=== PATIENT | female | born 1995 | race Caucasian/White ===

== ENCOUNTER 2017-05-08 19:00 | Inpatient (IN) | payer OTHER ==
[2017-05-08 19:55] LABS: BASOPHIL 0.1 % (0-2.0); EOSINOPHIL 1.1 % (0-4.5); MCH 31.9 pg (25.7-33.7); MCHC 34.4 g/dl (32.0-36.0); MEAN CELL VOLUME 92.6 fl (80-96); MEAN PLT VOLUME 8.8 fl (7.5-11.1); NEUTROPHILS 73.4 % (42.8-82.8); PLATELET COUNT 185 K/MM3 (134-434); WHITE BLOOD COUNT 7.6 K/mm3 (4.0-10.0)
[2017-05-08] MEDS ORDERED: AMPICILLIN - 100 ML IVPB ONE (20:00)
[2017-05-08 20:10] LABS: INR 0.95 (0.82-1.09); PROTHROMBIN TIME (PATIENT) 10.4 SEC (9.98-11.88)
[2017-05-08 20:12] LABS: ACTIVATED PTT 26.2 SECONDS (26.9-34.4)
[2017-05-08] MEDS ORDERED: TUBERCULIN PPD 5 TU/0.1ML SYRINGE (IN PATIENT USE ONLY) ID ONE (20:45)
[2017-05-08] MEDS ORDERED: DEXTROSE 5%-LACTATED RINGERS 1,000 ML IV SCH (20:45)
[2017-05-08 20:59] LABS: ANION GAP 11 (8-16); CALCIUM 8.5 mg/dL (8.5-10.1); CO2 23 mmol/L (21-32); CREATININE 0.4 mg/dL (0.55-1.02); GLUCOSE,RANDOM 89 mg/dL (74-106)
[2017-05-08] MEDS ORDERED: OXYTOCIN 15 UNITS/ LR 250 ML 250 ML IVPB SCH (21:00)
[2017-05-08 21:03] VITALS: BMI 25.9
--- NOTE | 2017-05-08 21:58 | HP ---
Past Medical History - Admission History of Present Illness: 21 yo @ 40 5/7 wks by LMP consistent for first trimester ultrasound, EDC complicated by: 1. ASCUS/HPV+, colpo bx=DELBERT I 2. Teen 3. GBS positive, no penicillin allergy Patient presents for induction of labor for postdates. She reports movement, denies leakage of fluid or vaginal bleeding. History Source: Patient Limitations to Obtaining History: No Limitations - Past Medical History Cardiovascular: No: HTN Pulmonary: No: Asthma Gastrointestinal: No: GERD ...: 1 ...Para: 0 ...Term: 0 ...: 0 ...Spon : 0 ...Induced : 0 ...Multiple Gestation: 0 ...LMP: 07/26/16 ... Weeks Gestation by Dates: 41.0 ...EDC by Dates: 05/01/17 ...EDC by Sono: 05/03/17 Heme/Onc: No: Anemia - Past Surgical History Past Surgical History: Yes: None Hx Myomectomy: No Hx Transabdominal Cerclage: No - Smoking History Smoking history: Never smoked Have you smoked in the past 12 months: No - Alcohol/Substance Use Hx Alcohol Use: No History of Substance Use: reports: None - Social History Usual Living Arrangement: Yes: Alone History of Recent Travel: No Home Medications - Allergies Allergies/Adverse Reactions: Allergies Allergy/AdvReac Type Severity Reaction Status Date / Time No Known Allergies Allergy Verified 04/16/17 12:44 - Home Medications Home Medications: Ambulatory Orders Vitamins (Sjr) - 1 tab PO DAILY 04/16/17 Family Disease History - Family Disease History Family History: Denies Review of Systems - Review of Systems Constitutional: reports: No Symptoms Neck: reports: No Symptoms Cardiovascular: reports: No Symptoms Gastrointestinal: reports: No Symptoms Genitourinary: reports: No Symptoms Musculoskeletal: reports: No Symptoms Integumentary: reports: No Symptoms Neurological: reports: No Symptoms Endocrine: reports: No Symptoms Psychiatric: reports: No Symptoms Physical Exam - Maternity Vital Signs: Vital Signs Temperature 98.2 F 05/08/17 20:57 Pulse Rate 85 05/08/17 20:57 Respiratory Rate 18 05/08/17 20:57 Blood Pressure 110/61 05/08/17 20:57 O2 Sat by Pulse Oximetry (%) Constitutional: Yes: Well Nourished, No Distress, Calm Cardiovascular: Yes: Regular Rate and Rhythm Lungs: Clear to auscultation - Abdominal Exam/OB Number of Fetuses: Single Presentation: Vertex Contractions: Yes Regularity: Regular Intensity: Moderate Heart Rate (range): 130 Category: I Accelerations: Non-Uniform Decelerations: None - Vaginal Exam/OB Speculum Exam: No Dilatation (cm): 5 Amniotic Membrane Status: Ruptured Station: -2 - Physical Exam Edema: No Psychiatric: Yes: Alert, Oriented - Labs Lab Results: CBC, BMP 05/08/17 19:30 05/08/17 19:30 Hemorrhage Risk Assessment - Risk Factors Medium Risk Factors: Yes: None High Risk Factors: Yes: None Risk Score: 1 Risk Level: Medium Risk Imaging - Results Ultrasound: Report Reviewed (05/04/2017 - EFW 8lb 3 oz, BPP 8/8, KATHLEEN 13.1) Assessment/Plan 21 yo @ 40 5/7 wks induction of labor 1. Consents reviewed and signed. Risks including uterine tachysystole, heart rate changes, failure, need for emergent delivery discussed. All questions answered. 2. Admission labs reviewed 3. GBS positive, ampicillin per protocol 4. Will offer pain medication upon patient request 5. Will proceed with expectant management, anticipate vaginal deilvery.
[2017-05-08] MEDS ORDERED: ELECTROLYTE-148 SOLN 500 ML IV ONE (22:00)
[2017-05-08 22:03] LABS: HIV 1 & 2 AB NEGATIVE; HIV 1 AGp24 NEGATIVE
[2017-05-08] MEDS ORDERED: PCA PUMP KEY 1 EACH EACH ONE (22:09)
[2017-05-08] MEDS: FENTANYL/BUPIVACAINE/NS/PF - PCEA - 50 ML DISP.SYRIN EP SCH ×2 (22:30→23:30)
[2017-05-09] MEDS ORDERED: AMPICILLIN - 100 ML IVPB SCH
[2017-05-09] MEDS ORDERED: WITCH HAZEL 50% (TUCKS) 40 PAD/JAR PAD TP PRN (02:02)
[2017-05-09] MEDS ORDERED: BENZOCAINE 28 GM HEMORRHOIDAL OINTMENT TP PRN (02:02)
[2017-05-09] MEDS ORDERED: oxyCODONE HCL 5 MG TABLET PO PRN (02:02)
[2017-05-09] MEDS ORDERED: BISACODYL 10 MG SUPP.RECT RC PRN (02:02)
[2017-05-09] MEDS ORDERED: BENZOCAINE 20% 57 GM BOTTLE TP PRN (02:02)
[2017-05-09] MEDS ORDERED: METHYLERGONOVINE MALEATE 0.2 MG/1 ML AMP IM PRN (02:02)
--- NOTE | 2017-05-09 02:02 | PN ---
Delivery - Delivery Vaginal Delivery: No Problems Type of Anesthesia: Epidural Episiotomy/Laceration: Midline, Left Mediolateral, 1st degree EBL (cc): 400 Delivery, Single - Stages of Labor Date 1st Stage Initiatied: 05/08/17 Time 1st Stage Initiated: 22:00 Date 2nd Stage Initiated: 05/09/17 Time 2nd Stage Initiated: 01:15 Date of Delivery: 05/09/17 Time of Delivery: 01:35 Date Placenta Delivered: 05/09/17 Time Placenta Delivered: 01:50 Placenta: Yes: Spontaneous - Condition of Infant Gender: Male Position: Left, OA Total Hours ROM (Hrs/Mins): 3hrs 50minutes - 1 Minute Total Score: 8 5 Minutes Total Score: 9 - [place] Feeding Plan Initial Plan: Exclusive throughout hospitalization Remarks - Remarks Remarks: Patient progressed to fully dilated and at 0135 via delivered a viable male in JAME position, APGARs 8,9. Weight and length unknown at this time. Head delivered spontaneously followed by shoulders and body without difficulty. Cord was clamped and cut. Cord blood collected and sent. Baby handed to waiting nursing staff Perineum and vagina examined, a first degree vaginal laceration (midline and left lateral) and periuretheral laceration was noted and repaired in the usual fashion. Placenta was delivered spontaneously and intact. 20 units of pitocin in 1 L IVF was given. All counts correct x 2. Mother and stable in LDR. EBL 400cc.
[2017-05-09] MEDS ORDERED: D5W-LR W/ 20 UNITS OXYTOCIN 1,000 ML IV SCH (02:15)
[2017-05-09] MEDS: PRENATAL VITAMINS W/ FOLIC ACID TABLET (FP) PO SCH (09:14)
[2017-05-09] MEDS: ACETAMINOPHEN 325 MG TABLET (FP) PO PRN ×2 (09:14→22:06)
[2017-05-09] MEDS: IBUPROFEN 600 MG TABLET (FP) PO PRN ×2 (09:14→22:07)
[2017-05-10] MEDS: ACETAMINOPHEN 325 MG TABLET (FP) PO PRN (08:28)
[2017-05-10] MEDS: IBUPROFEN 600 MG TABLET (FP) PO PRN (08:28)
[2017-05-10 08:46] LABS: MCH 32.2 pg (25.7-33.7); MCHC 34.8 g/dl (32.0-36.0); MEAN CELL VOLUME 92.5 fl (80-96); MEAN PLT VOLUME 7.9 fl (7.5-11.1); PLATELET COUNT 140 K/MM3 (134-434); RDW 12.9 % (11.6-15.6); WHITE BLOOD COUNT 7.9 K/mm3 (4.0-10.0)
[2017-05-10] MEDS: PRENATAL VITAMINS W/ FOLIC ACID TABLET (FP) PO SCH (09:26)
[2017-05-10 09:40] LABS: PLATELET ESTIMATE SLT DECREASED (NORMAL)
[2017-05-10 09:41] LABS: PLATELET COMMENT2 NO CLOTTING DETECTED; TOTAL CELLS COUNTED 100
--- NOTE | 2017-05-10 10:09 | PN ---
Post Progress Note - Subjective Subjective: Patient without acute complaints. Reports tolerating oral intake without nausea or vomiting. Ambulating without dizziness. Denies fevers or chills. Pain well controlled with oral pain medication. without difficulty. noticed occasional dark brown blood from nipple, previous nipple piercing. Passing flatus. Post Day: 1 Type of Delivery: Vital Signs: Vital Signs Temperature 98.8 F 05/10/17 08:13 Pulse Rate 81 05/10/17 08:13 Respiratory Rate 20 05/10/17 08:13 Blood Pressure 112/58 05/10/17 08:13 O2 Sat by Pulse Oximetry (%) 99 05/09/17 21:00 Breast Exam: Yes: Engorged Uterus: Yes: Fundus Firm, Fundus below umbilicus Abdomen/GI: Yes: Abdomen soft, Passing flatus, Tolerating PO. No: Tender Lochia: Yes: Serosa Lochia, amount: Small Extremities: Yes: Calves non-tender. No: Edema Perineum: Yes: Laceration Activity: Ambulating - Labs Labs: CBC WBC 7.9 K/mm3 (4.0-10.0) 05/10/17 08:17 RBC 3.12 M/mm3 (3.60-5.2) L D 05/10/17 08:17 Hgb 10.0 GM/dL (10.7-15.3) L D 05/10/17 08:17 Hct 28.9 % (32.4-45.2) L D 05/10/17 08:17 MCV 92.5 fl (80-96) 05/10/17 08:17 MCH 32.2 pg (25.7-33.7) 05/10/17 08:17 MCHC 34.8 g/dl (32.0-36.0) 05/10/17 08:17 RDW 12.9 % (11.6-15.6) 05/10/17 08:17 Plt Count 140 K/MM3 (134-434) D 05/10/17 08:17 MPV 7.9 fl (7.5-11.1) D 05/10/17 08:17 Total Counted 100 05/10/17 08:17 Neutrophils % Y 05/10/17 08:17 Neutrophils % (Manual) 71 % (42.8-82.8) 05/10/17 08:17 Band Neuts % (Manual) 4 % (0-10) 05/10/17 08: Lymphocytes % Y 05/10/17 08:17 Lymphocytes % (Manual) 17 % (8-40) 05/10/17 08:17 Monocytes % 8.7 % (3.8-10.2) 05/08/17 19:30 Monocytes % (Manual) 6 % (3.8-10.2) 05/10/17 08: Eosinophils % 1.1 % (0-4.5) 05/08/17 19:30 Eosinophils % (Manual) 1 % (0-4.5) 05/10/17 08: Basophils % 0.1 % (0-2.0) 05/08/17 19:30 Platelet Estimate Slt decreased (NORMAL) 05/10/17 08:17 Platelet Comment No clumping noted 05/10/17 08:17 Platelet Comment No clotting detected 05/10/17 08:17 Assessment/Plan 21 yo PPD # 1 s/p , afebrile, vital signs stable, doing well 1. Continue routine care. 2. CBC with mild anemia 3. Rh positive status, no rhogam indicated. 4. Encourage ambulation 5. Continue oral pain medication 6. Anticipate discharge home day #2 7. Patient states desires circumcision for . Discussed risks including infection, bleeding, damage to tip of penis, and unsatisfactory result, resulting in surgical repair or repeat circumcision. Patient expressed understanding and consents to procedure. Reviewed infants chart, normal genitalia per tree marker, Dr. Jorge
--- NOTE | 2017-05-10 10:39 | DS ---
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 Signs: Vital Signs Temperature 98.8 F 05/10/17 08:13 Pulse Rate 81 05/10/17 08:13 Respiratory Rate 20 05/10/17 08:13 Blood Pressure 112/58 05/10/17 08:13 O2 Sat by Pulse Oximetry (%) 99 05/09/17 21:00 Labs: CBC, BMP 05/10/17 08:17 05/08/17 19:30 Delivery - Delivery Vaginal Delivery: No Problems Type of Anesthesia: Epidural Episiotomy/Laceration: Midline, Left Mediolateral, 1st degree EBL (cc): 400 Delivery, Single - Stages of Labor Date 1st Stage Initiatied: 05/08/17 Time 1st Stage Initiated: 22:00 Date 2nd Stage Initiated: 05/09/17 Time 2nd Stage Initiated: 01:15 Date of Delivery: 05/09/17 Time of Delivery: 01:35 Time Placenta Delivered: 01:50 Placenta: Yes: Spontaneous - Condition of Bilingual Administrative Assistant/Software Programmer Present: No Gender: Male Weight: 8 lb 2 oz Position: Left, OA Total Hours ROM (Hrs/Mins): 3hrs 50minutes - 1 Minute Total Score: 8 5 Minutes Total Score: 9 - Feeding Plan Initial Plan: Exclusive throughout hospitalization Discharge Summary Reason For Visit: LABOR INDUCTION Current Active Problems Anemia (Acute) Vaginal delivery (Acute) Procedures: Principal: vaginal delivery Other Procedures: augmentation of labor with pitocin Hospital Course: patient admitted for postdates augmentation of labor Admitted, found to be 4 cm. Started on pitocin, received epidural for pain control delivered via She was noted to have asymptomatic anemia PPD She remained afebrile, vital signs stable, for discharge home PPD#2 Condition: Unchanged/Unknown - Instructions Referrals: Arleen Sanchez MD [Staff Physician] - - Home Medications Comprehensive Discharge Medication List: Ambulatory Orders Vitamins (Sjr) - 1 tab PO DAILY 04/16/17
[2017-05-10] MEDS ORDERED: SENNOSIDES/DOCUSATE COMBO (SENNA PLUS) TABLET (UD) PO PRN (22:00)
[2017-05-11 08:27] VITALS: BP 110/62; PULSE 72; TEMP 99
[2017-05-11] MEDS: IBUPROFEN 600 MG TABLET (FP) PO PRN (09:35)
[2017-05-11] MEDS: PRENATAL VITAMINS W/ FOLIC ACID TABLET (FP) PO SCH (09:36)
[2017-05-11] MEDS: ACETAMINOPHEN 325 MG TABLET (FP) PO PRN (09:36)
== END 2017-05-11 13:00 | disposition home or self-care (01) | DRG 775 ==
LOC: JLDR 19:00 → J3W 05-09 02:55
PROVIDERS: ADMIT Obstetrics & Gynecology; ATTEND Obstetrics & Gynecology
PROC: 4A1HXCZ Monitoring of Products of Conception, Cardiac Rate, External Approach (ICD-10-PCS; 2017-05-08)
PROC: 10E0XZZ Delivery of Products of Conception, External Approach (ICD-10-PCS; principal; 2017-05-09)
PROC: 0W8NXZZ Division of Female Perineum, External Approach (ICD-10-PCS; 2017-05-09)
PROC: 0HQ9XZZ Repair Perineum Skin, External Approach (ICD-10-PCS; 2017-05-09)
DX: O48.0 Post-term pregnancy (principal); O70.0 First degree perineal laceration during delivery; O99.824 Streptococcus B carrier state complicating childbirth; O26.893 Other specified pregnancy related conditions, third trimester; N87.0 Mild cervical dysplasia; Z3A.40 40 weeks gestation of pregnancy; Z37.0 Single live birth
CPT/HCPCS: 36415; 59409; 80048; 85025; 85610; 85730; 86593; 86850; 86900; 86901; 87389